=== PATIENT | female | born 1990 | race Caucasian/White ===

== ENCOUNTER 2020-03-03 06:27 | Day surgery (SDC) | payer OTHER ==
[2020-03-02 12:06] LABS: Specific Gravity 1.015 (1.005-1.030)
[2020-03-03] MEDS ORDERED: Ringers Lactate 1,000 ML IV ONE (06:54)
[2020-03-03] MEDS ORDERED: propofoL 200 MG/20 ML VIAL IV ONE ×2 (07:21→08:07)
[2020-03-03] MEDS ORDERED: dexAMETHasone 10 MG/ML VIAL ONE (07:22)
[2020-03-03] MEDS ORDERED: ROCURONIUM 50 MG/5 ML VIAL IV ONE (07:22)
[2020-03-03] MEDS ORDERED: FENTANYL CITR 100 MCG/2 ML ONE ×2 (07:22→08:05)
[2020-03-03] MEDS ORDERED: ONDANSETRON 4 MG/2 ML VIAL ONE (07:22)
[2020-03-03] MEDS ORDERED: MIDAZOLAM HCL 2 MG/2 ML INJ ONE (07:22)
[2020-03-03] MEDS ORDERED: LIDOCAINE 2% MPF 5 ML VIAL ONE (07:22)
[2020-03-03] MEDS ORDERED: LIDOCAINE 1% W/EPI 1:100,000 MDV 20 ML VIAL ONE (07:28)
[2020-03-03] MEDS ORDERED: EPINEPHRINE/PF 1 MG/ML AMP ONE ×2 (07:28→07:59)
[2020-03-03] MEDS ORDERED: SUCCINYLCHOLINE 20 MG/ML (10 ML) IV ONE (07:30)
[2020-03-03] MEDS ORDERED: OXYMETAZOLINE HCL 0.05% 15ML NAS ONE (07:32)
[2020-03-03] MEDS ORDERED: NA CHLORIDE 0.9% 250 ML ONE (07:32)
--- NOTE | 2020-03-03 09:11 | P.BOP ---
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
[2020-03-03] MEDS ORDERED: IBUPROFEN 400 MG TAB ONE (09:52)
--- NOTE | 2020-03-03 10:29 | OP ---
Date of Procedure: 03/03/2020 Surgeon: Tess Gill MD Slasher: None. 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 Indication For Surgery: The patient presented to the ENT clinic with progressive dysphonia and a papillomatous appearing lesion at the level of the vocal cords by mirror exam with symptoms of progressive shortness of breath and dysphonia. She has a history of previous laryngeal surgery during the childhood for uncertain pathology. Due to her clinical findings and symptoms, her surgery was deemed urgent due to risk of worsening airway obstruction. Preoperative COVID testing was deferred due to the urgency of the case. Procedure: Direct laryngoscopy with telescope and removal of laryngeal tumor with micro flap. Blood Loss: Less than 5 mL. Description Of Procedure: The patient was brought to the operating room. She was placed under general anesthesia via a 6-0 endotracheal tube. A tooth guard was placed and the [facility] laryngoscope was fitted with a 15-degree rigid telescope. A direct laryngoscopy was performed. The soft palate, uvula, posterior pharyngeal wall, tonsillar fossa, hypopharynx, piriform sinus, vallecula, and epiglottis; all appeared normal with no evidence of papillomatosis, mass. The laryngoscope was then positioned for view of the vocal cords and placed in suspension. Photo documentation was obtained. 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 There was a small anterior glottic web noted and documented photographically which may be due to prior surgery but clinically is not likely significant in regard to airway obstruction concerns. A cup forceps was used to grasp and remove a portion of the papilloma, which will be sent for permanent pathology with a request for HPV typing. The microdebrider was then fitted with a laryngeal director of residential services blade and used to debulk the tumor starting from the medial edge and working toward the left vocal fold. Once the tumor was debulked, the area was packed with epinephrine-soaked pledgets to aid in hemostasis. The residual tumor along the cord was partially obstructed by the endotracheal tube. A consideration was made for intermittent apnea, but the degree of bleeding from the tumor was felt with the patient at some risk in regard to aspiration. The arytenoid visual merchandise manager was then positioned between the left arytenoid and the endotracheal tube in order to create a working space between the tumor and the endotracheal tube. The residual tumor was grasped with a small alligator and an up-cutting laryngeal scissor was used to sharply dissect tumor from its attachment point. After additional placement of epinephrine-soaked pledgets, the laryngeal director of residential services blade was again used to remove judiciously small amount of residual papilloma. After removal of this, the vocal cord, the laryngoscope, and laryngeal visual merchandise manager were repositioned pushing the endotracheal tube anteriorly to allow better visualization of the posterior aspect of attachment. An additional amount of papilloma was judiciously removed and the mucosal flap from the inferior aspect was laid over the defect created by the tumor removal. The anesthesiologist was then asked to deflate the cuff of the endotracheal tube and advance the tube into the trachea in order to allow for visualization of the subglottic airway. There was no evidence of papillomatous lesions within the subglottis. The endotracheal tube was replaced to its anatomic position and the cuff was reinflated. The patient was then returned to care of Anesthesia for awakening, extubation, which proceeded without difficulty. The patient was then transported to the recovery room in stable condition. Disposition: The patient will be discharged home later today with recommendations for strict voice rest for 7 days, absolutely no smoking, diet as tolerated, [id number] pain medications as needed. She will follow up with Dr. Gill in 10 days for flexible in-office laryngoscopy and evaluation of healing. JASPREET/ALBA Voice ID: [id number] Report ID: [id number]
[2020-03-03 10:34] VITALS: TEMP 97.2
[2020-03-03 10:37] VITALS: BP 107/77; O2SAT 100
== END 2020-03-03 10:20 | disposition home or self-care (01) ==
LOC: OR 06:27
PROVIDERS: ATTEND Otolaryngology
PROC: 0CU Mouth and Throat, Supplement (ICD-10-PCS; 2020-03-03)
PROC: 0CBV8ZZ Excision of Left Vocal Cord, Via Natural or Artificial Opening Endoscopic (ICD-10-PCS; principal; 2020-03-03 07:30)
DX: D14.1 Benign neoplasm of larynx (principal); J38.7 Other diseases of larynx; R49.0 Dysphonia; J98.8 Other specified respiratory disorders
CPT/HCPCS: 31545; 81025; 88305; U0002; J2704 ×2; J0171 ×2; J0330; J2250; J3010 ×2; J1100; J7120; J7050; J2405